=== PATIENT | female | born 1975 | race Caucasian/White ===

== ENCOUNTER 2020-05-24 22:30 | Emergency (ER) | payer BC, MEDICAID ==
[~2020-05-24] VITALS: Ht 167.6 cm; Wt 72.6 kg
[2020-05-24] MEDS ORDERED: LORazepam 0.5 MG TAB PO ONE (23:00)
[2020-05-25 00:30] VITALS: BP 110/62
== END 2020-05-25 04:00 | disposition home or self-care (01) ==
LOC: EDBD 22:30 → ER 22:35
DX: F41.9 Anxiety disorder, unspecified (principal); F32.9 Major depressive disorder, single episode, unspecified

== ENCOUNTER 2021-07-06 13:15 | Inpatient (IN) | payer BC, MEDICAID ==
[~2021-07-06] VITALS: Ht 157.5 cm; Wt 111.5 kg
[2021-07-06 14:14] LABS: Basophils # (auto) 0.1 10 ^3/uL (0-0.2); Basophils % (auto) 0.5 % (0.0-2.0); Eosinophils # (auto) 0.2 10 ^3/uL (0-0.8); Eosinophils % (auto) 2.1 % (0.0-7.0); Hemoglobin 16.5 g/dL (12.2-16.2); Lymphocytes # (auto) 2.5 10 ^3/uL (0.4-5.4); Lymphocytes % (auto) 23.4 % (10.0-50.0); Mean Corpuscular Hemoglobin 29.4 pg (28.0-32.0); Mean Corpuscular Hgb Conc. 34.5 g/dL (32.0-36.0); Mean Corpuscular Volume 85.4 fL (80.0-100.0); Monocytes # (auto) 0.5 10 ^3/uL (0-1.3); Monocytes % (auto) 4.5 % (0.0-12.0); Neutrophils # (auto) 7.6 10 ^3/uL (1.6-8.6); Neutrophils % (auto) 69.5 % (37.0-80.0); Nucleated Red Blood Cells % 0.1 %; Red Blood Cells 5.62 10^6/uL (4.0-5.20); Red Cell Distribution Width 14.6 % (11.8-14.3); White Blood Cell 10.9 10^3/uL (4.4-10.8)
[2021-07-06 14:38] LABS: Albumin 3.6 g/dL (3.4-5.0); BUN/Creatinine Ratio 12.6; Calcium 8.8 mg/dL (8.5-10.1); Potassium 4.3 mmol/L (3.5-5.1)
[2021-07-06 14:43] LABS: Bilirubin, Total 0.5 mg/dL (0.2-1.0); Total Protein 7.8 g/dL (6.4-8.2)
[2021-07-06] MEDS ORDERED: LORazepam 0.5 MG TAB PO ONE (14:45)
[2021-07-06] MEDS ORDERED: SODIUM CHLORIDE 0.9% 1,000 ML IV ONE (15:00)
[2021-07-06] MEDS ORDERED: MORPHINE SULFATE INJECTION 2 MG/ML SYRG IV ONE (16:30)
[2021-07-06] MEDS ORDERED: MORPHINE SULFATE 4 MG/ML SYR/VIAL IV PRN (16:30)
[2021-07-06] MEDS ORDERED: ONDANSETRON HCL 4 MG/2 ML VIAL IV ONE (16:30)
[2021-07-06] MEDS ORDERED: MORPHINE SULFATE INJECTION 2 MG/ML SYRG IV PRN (16:30)
[2021-07-06] MEDS ORDERED: NITROGLYCERIN 0.4 MG SL TAB SL PRN (16:30)
[2021-07-06] MEDS ORDERED: DOCUSATE SOD 100 MG CAP PO PRN (16:30)
[2021-07-06] MEDS ORDERED: ACETAMINOPHEN 325 MG TAB PO PRN ×2 (16:30)
[2021-07-06] MEDS: HYDROcodone-ACET 5/325MG TAB PO PRN (17:12)
[2021-07-06 17:24] LABS: Cholesterol 249 mg/dL (< 200)
[2021-07-06 17:26] LABS: HDL Cholesterol 35 mg/dL (40-59); Triglycerides 299 mg/dL (< 150)
[2021-07-06] MEDS ORDERED: NICOTINE 14 MG/24HR TOPICAL PATCH TD ONE (17:30)
[2021-07-06] MEDS ORDERED: ASPirin 81 mg TAB PO ONE (17:30)
[2021-07-06 18:43] VITALS: BP 116/71
[2021-07-06 18:45] VITALS: BP 116/71
[2021-07-06 19:27] LABS: Urine Bacteria NONE SEEN /hpf (None Seen); Urine Blood Negative /uL (Negative); Urine Mucus FEW (None Seen); Urine Specific Gravity 1.013 (1.001-1.035); Urine WBC 1 /hpf (0 - 5)
[2021-07-06 19:46] LABS: Alcohol, Urine < 3.0 mg/dL (0-10); Amphetamine Screen, Urine NEGATIVE (NEGATIVE); Barbiturate Scree,Urine NEGATIVE (NEGATIVE); Benzodiazephine Screen, Urine NEGATIVE (NEGATIVE); Cannabinoid Screen, Urine NEGATIVE (NEGATIVE); Cocaine Screen, Urine NEGATIVE (NEGATIVE); Opiate Scree,Urine POSITIVE (NEGATIVE); Phencyclidine Screen, Urine NEGATIVE (NEGATIVE)
[2021-07-06] MEDS ORDERED: LISI-716 PO (20:43)
[2021-07-06] MEDS ORDERED: CYCL-839 PO (20:43)
[2021-07-06] MEDS: ATORVASTATIN 20 MG TAB PO SCH (21:07)
[2021-07-06 22:40] VITALS: BP 90/52
[2021-07-07] MEDS ORDERED: ALBUMIN 5% 250 ML IV ONE ×2 (01:01→01:15)
[2021-07-07] MEDS ORDERED: diphenhdrAMINE HCL 25 MG CAP PO ONE (02:45)
[2021-07-07 05:00] VITALS: BP 111/66
[2021-07-07] MEDS: HYDROcodone-ACET 5/325MG TAB PO PRN ×4 (05:27→20:16)
[2021-07-07 06:20] LABS: Basophils # (auto) 0 10 ^3/uL (0-0.2); Basophils % (auto) 0.5 % (0.0-2.0); Eosinophils # (auto) 0.4 10 ^3/uL (0-0.8); Eosinophils % (auto) 5.2 % (0.0-7.0); Hematocrit 40.6 % (36.0-46.0); Hemoglobin 13.9 g/dL (12.2-16.2); Lymphocytes # (auto) 3.4 10 ^3/uL (0.4-5.4); Lymphocytes % (auto) 44.6 % (10.0-50.0); Mean Corpuscular Hemoglobin 29.3 pg (28.0-32.0); Mean Corpuscular Hgb Conc. 34.2 g/dL (32.0-36.0); Mean Corpuscular Volume 85.5 fL (80.0-100.0); Monocytes # (auto) 0.5 10 ^3/uL (0-1.3); Monocytes % (auto) 6.7 % (0.0-12.0); Neutrophils # (auto) 3.3 10 ^3/uL (1.6-8.6); Nucleated Red Blood Cells % 0.1 %; Red Blood Cells 4.75 10^6/uL (4.0-5.20); Red Cell Distribution Width 14.5 % (11.8-14.3); White Blood Cell 7.7 10^3/uL (4.4-10.8)
[2021-07-07 06:27] LABS: Albumin 3.4 g/dL (3.4-5.0); Calcium 8.3 mg/dL (8.5-10.1); Potassium 3.6 mmol/L (3.5-5.1)
[2021-07-07 06:33] LABS: BUN/Creatinine Ratio 19.8; Bilirubin, Total 0.4 mg/dL (0.2-1.0); Total Protein 6.6 g/dL (6.4-8.2)
[2021-07-07 09:00] VITALS: BP 139/79
[2021-07-07] MEDS: ENOXAPARIN SOD 40 MG/0.4 ML SYRINGE SC SCH (10:13)
[2021-07-07] MEDS: ALPRAZolam 0.5 MG TAB PO SCH (10:14)
[2021-07-07] MEDS: NICOTINE 14 MG/24HR TOPICAL PATCH TD SCH (10:14)
[2021-07-07] MEDS: ASPirin 81 mg TAB PO SCH (10:14)
[2021-07-07] MEDS ORDERED: ADENOSINE 92 MG in GIVE UN-DILUTED 0 ML IV STA (11:31)
[2021-07-07 13:00] VITALS: BP 116/71
[2021-07-07 15:00] VITALS: BP 124/74
[2021-07-07] MEDS: ATORVASTATIN 20 MG TAB PO SCH (21:31)
[2021-07-07 22:00] VITALS: BP 154/95
[2021-07-08 05:00] VITALS: BP 148/88
[2021-07-08] MEDS: HYDROcodone-ACET 5/325MG TAB PO PRN ×2 (05:15→09:35)
[2021-07-08 06:07] LABS: Potassium 3.6 mmol/L (3.5-5.1)
[2021-07-08 06:15] LABS: Magnesium 2.4 mg/dL (1.6-2.6)
[2021-07-08 08:48] VITALS: BP 139/99
[2021-07-08] MEDS: NICOTINE 14 MG/24HR TOPICAL PATCH TD SCH (09:20)
[2021-07-08] MEDS: ALPRAZolam 0.5 MG TAB PO SCH (09:20)
[2021-07-08] MEDS: ASPirin 81 mg TAB PO SCH (09:20)
[2021-07-08] MEDS: ENOXAPARIN SOD 40 MG/0.4 ML SYRINGE SC SCH (09:21)
[2021-07-08] MEDS ORDERED: CHOL20007 PO (09:56)
[2021-07-08] MEDS ORDERED: ATOR20TA PO (09:56)
[2021-07-08 11:17] VITALS: BP 139/99
[2021-07-08 12:47] VITALS: BP 163/110
== END 2021-07-08 12:20 | disposition home or self-care (01) | DRG 469 ==
LOC: ER 13:31 → TELE 16:17 → TELE-CENTR 18:19 → CENTRAL 07-08 10:20
PROVIDERS: ADMIT Internal Medicine; ATTEND Internal Medicine
DX: N17.0 Acute kidney failure with tubular necrosis (principal); I50.31 Acute diastolic (congestive) heart failure; I21.A1 Myocardial infarction type 2; R65.10 Systemic inflammatory response syndrome (SIRS) of non-infectious origin without acute organ dysfunction; I11.0 Hypertensive heart disease with heart failure; E86.0 Dehydration; E66.01 Morbid (severe) obesity due to excess calories; E78.5 Hyperlipidemia, unspecified; F17.200 Nicotine dependence, unspecified, uncomplicated; F32.A Depression, unspecified; Z20.822 Contact with and (suspected) exposure to COVID-19; F41.0 Panic disorder [episodic paroxysmal anxiety]; R73.03 Prediabetes; Z82.49 Family history of ischemic heart disease and other diseases of the circulatory system; Z68.42 Body mass index [BMI] 45.0-49.9, adult; Z71.6 Tobacco abuse counseling; Z88.5 Allergy status to narcotic agent; D72.829 Elevated white blood cell count, unspecified
CPT/HCPCS: 36415; 71045; 78452; 80053; 80061; 80307; 81001; 81025; 82306; 83036; 83735; 83880; 84132; 84443; 84484; 85025; 87426; 93005; 93017; 93306; 96361; 96374; 96375; G0378; J0153; J2405